=== PATIENT | male | born 1940 | race Caucasian/White ===

== ENCOUNTER 2018-01-29 14:31 | Emergency (ER) | payer OTHER ==
[~2018-01-29] VITALS: Ht 180.3 cm; Wt 116.4 kg
[2018-01-29 14:51] LABS: BASOPHIL (%) 0.4 % (0-1); BASOPHIL COUNT 0.1 K/uL (0-0.1); EOSINOPHIL (%) 0.4 % (0-5); EOSINOPHIL COUNT 0.1 K/uL (0-0.3); HEMATOCRIT 42.9 % (38.0-50.0); HEMOGLOBIN 15.4 G/DL (12.5-16.6); IMMATURE GRANULOCYTE (%) 0.5 % (0.0-0.7); LYMPHOCYTE (%) 9.1 % (15-42); LYMPHOCYTE COUNT 1.5 K/uL (1.0-2.8); MCH 28.4 PG (29.0-34.0); MCHC 35.9 G/DL (30.0-36.0); MCV 79.2 FL (86-99); MONOCYTE COUNT 0.7 K/uL (0-0.8); NEUTROPHIL (%) 85.6 % (45-76); NEUTROPHIL COUNT 14.3 K/uL (1.8-6.4); PLATELET COUNT 289 K/uL (156-360); RBC DIS.WIDTH-CV 13.5 % (11.8-14.6); RBC DIS.WIDTH-SD 38.4 % (39-53); RED BLOOD COUNT 5.42 M/uL (4.00-5.50); WHITE BLOOD COUNT 16.7 K/uL (4.1-10.2)
[2018-01-29 14:58] LABS: CHLORIDE 104 mEq/L (99-109); POTASSIUM 4.9 mEq/L (3.7-5.4); SODIUM 140 mEq/L (136-147)
[2018-01-29 15:00] LABS: GLUCOSE 250 mg/dL (70-99)
[2018-01-29 15:04] LABS: GFR ESTIMATE (CALCULATED) > 59 mL/min/ (58.99-99999)
[2018-01-29 15:05] LABS: UREA NITROGEN (BUN) 12 mg/dL (9-23)
[2018-01-29 16:41] LABS: ALBUMIN 4.3 g/dL (3.2-4.8)
[2018-01-29 16:44] LABS: TOTAL PROTEIN 8.3 g/dL (6.4-8.3)
[2018-01-29 16:46] LABS: TOTAL BILIRUBIN 1.1 mg/dL (0.0-1.0)
[2018-01-29 16:47] LABS: ALKALINE PHOSPHATASE 60 IU/L (3-129)
[2018-01-29 16:49] LABS: AST (GOT) 16 IU/L (2-34); DIRECT BILIRUBIN 0.4 mg/dL (0.0-0.3)
[2018-01-29 16:50] LABS: ALT (GPT) 13 IU/L (3-49); LIPASE 9 U/L (1.0-51.0)
[2018-01-29 17:15] LABS: APPEARANCE CLEAR ((CLEAR)); BILIRUBIN NEGATIVE; BLOOD NEGATIVE; COLOR YELLOW ((YELLOW)); GLUCOSE (STRIP) 150; KETONES 5; LEUKOCYTES NEGATIVE; NITRITE NEGATIVE; PROTEIN (STRIP) 30; UROBILINOGEN 0.2 MG/DL (0.2-1.0)
[2018-01-29 17:16] LABS: SPECIFIC GRAVITY > 1.060 (1.000-1.030)
[2018-01-29] MEDS ORDERED: BENTYL20 MG PO (17:24)
[2018-01-29] MEDS ORDERED: ZOFRAN4 MG PO (17:24)
[2018-01-29] MEDS ORDERED: IMODIUM A-D2 M2 PO (17:24)
[2018-01-29 17:40] VITALS: BP 155/90
== END 2018-01-29 17:40 | disposition home or self-care (01) ==
LOC: EME 14:31
PROVIDERS: Emergency Medicine
DX: A08.4 Viral intestinal infection, unspecified (principal); K86.89 Other specified diseases of pancreas; I10 Essential (primary) hypertension; E11.9 Type 2 diabetes mellitus without complications; Z87.891 Personal history of nicotine dependence
CPT/HCPCS: 74177; 80048; 80076; 81003; 83690; 85025; 99281; 99285; J2270; J7030